=== PATIENT | female | born 1970 | race African-American/Black ===

== ENCOUNTER 2019-07-18 23:27 | Emergency (ER) | payer SELFPAY ==
[~2019-07-18] VITALS: Ht 157.5 cm; Wt 107.0 kg
[2019-07-18 23:30] VITALS: BP 134/82
== END 2019-07-19 00:33 | disposition left against medical advice (07) ==
LOC: ER 23:27
DX: R07.9 Chest pain, unspecified (principal); Z53.21 Procedure and treatment not carried out due to patient leaving prior to being seen by health care provider
CPT/HCPCS: 93005